=== PATIENT | female | born 1975 | race Caucasian/White ===

== ENCOUNTER 2022-06-17 20:43 | Emergency (ER) | payer MEDICAID, OTHER ==
[2022-06-17] MEDS ORDERED: KETOROLAC 30 MG/ML VIAL IM STA (21:21)
--- NOTE | 2022-06-17 21:24 | ED Physician Documentation ---
History of Present Illness - Stated complaint Stated Complaint: RT LEG SWOLLEN - Chief complaint Chief Complaint: Ext Problem - History obtained from History obtained from: Patient - Additonal information Additional information: 47-year-old woman with history of psoriasis with frequent plaque development on right lower extremity presents with swelling, redness, pain gradual in onset and developing progressively over the past 4 days. She has never had this happen before. Denies history of blood clots, recent bedrest, surgery, shortness of breath, cough or hemoptysis. Review of Systems Skin: reports: Lesions (psoriasis plaques) Musculoskeletal: reports: Extremity pain, Extremity swelling PD PAST MEDICAL HISTORY - Past Medical History Cardiovascular: None Respiratory: None Endocrine/Autoimmune: None GI: None [employer]: None : None HEENT: None Psych: None Musculoskeletal: None Derm: Eczema - Past Surgical History Past Surgical History: Yes /[employer]: section - Present Medications Home Medications: Ambulatory Orders Medication Instructions Recorded Confirmed cephALEXin [Keflex] 500 mg PO Q6H #28 tab 06/17/22 - Allergies Allergies/Adverse Reactions: Allergies Allergy/AdvReac Type Severity Reaction Status Date / Time hydromorphone HCl * Allergy Rash Verified 06/17/22 21:00 [From Dilaudid] - Social History Does the pt smoke?: No Smoking Status: Never smoker Does the pt drink ETOH?: No Does the pt have substance abuse?: No - Immunizations Immunizations are current?: Yes - POLST Patient has POLST: No PD ED PE NORMAL - Vitals Vital signs reviewed: Yes - General General: Alert and oriented X 3, No acute distress, Well developed/nourished - HEENT HEENT: Atraumatic, PERRL, EOMI - Derm Derm: Normal color, Warm and dry, Other (psoriasis plaques to LLE, particularly lateral leg. erythema and swelling of leg from ankle to knee. 2+ BL dp pulses. normal sensation and movement) Results - Vitals Vitals: Vital Signs - 24 hr 06/17/22 06/17/22 06/17/22 20:55 21:16 21:55 Temperature 36.1 C L Heart Rate 100 83 Respiratory 19 16 16 Rate Blood Pressure 140/88 H 122/82 H O2 Saturation 97 99 06/17/22 06/17/22 23:11 23:25 Temperature Heart Rate 72 Respiratory 16 17 Rate Blood Pressure 136/82 H O2 Saturation 100 Oxygen O2 Source Room air PD Medical Decision Making - ED course ED course: 47-year-old woman presents with swelling, erythema, and pain to left lower extremity with associated psoriasis plaques. Concerning is predominantly for cellulitis however we will obtain an ultrasound to evaluate for DVT as well. She has low risk therefore I suspect the study will be negative and we can treat with antibiotics for cellulitis. I will however advised her to have follow-up ultrasound done in 2 weeks to confirm no DVT. u/s Negative for DVT. Advised her to follow-up for biopsy of her lymph node. Return precautions given. Plan to follow-up with primary care provider for wound check this week. Departure - Departure Disposition: 01 Home, Self Care Clinical Impression: Pain in extremity, Cellulitis, Enlarged lymph node Condition: Good Instructions: Cellulitis Dc Prescriptions: cephALEXin [Keflex] 500 mg PO Q6H #28 tab Comments: You are seen in the emergency department for cellulitis of your left leg. A prescription for antibiotics was sent to [facility] [place] electronically. You also had an ultrasound done to check for blood clot. You should have a repeat ultrasound in 2 weeks. Please follow-up with your primary care provider to check your leg's healing and also to have your repeat ultrasound scheduled. Return to the emergency department if the redness is spreading or not improving after 48hours, for new or worsening symptoms or for any other concerns.
--- NOTE | 2022-06-17 23:05 | Ultrasound Report ---
PROCEDURE: Duplex Ext Veins Right INDICATIONS: RLE swelling, redness, pain TECHNIQUE: Real-time imaging, as well as color and pulse Doppler interrogation, were performed of the lower extr emity deep veins from the inguinal ligament to the popliteal fossa. COMPARISON: None. FINDINGS: The deep veins are normally compressible, and free of intraluminal thrombus. Color and pu lse Doppler demonstrate normal phasic intraluminal flow. There is normal augmentation response to di stal compression maneuver. Enlarged right groin lymph node with a short axis diameter measuring 1.3 cm. Calf edema. IMPRESSION: 1. No right lower extremity DVT. 2. Enlarged right groin lymph node. Recommend clinical correlation and follow-up. If the node persist s consider ultrasound-guided biopsy. Reviewed by: Tim Jeong MD on 06/17/2022 10:57 PM PDT Approved by: Tim Jeong MD on 06/17/2022 10:57 PM PDT Station ID: [id number]
[2022-06-18] MEDS ORDERED: cephALEXin 250 MG CAPSULE PO STA (01:02)
[2022-06-18 01:16] VITALS: BP 125/70
== END 2022-06-18 01:33 | disposition home or self-care (01) ==
LOC: ED 20:43
DX: L03.115 Cellulitis of right lower limb (principal); R59.9 Enlarged lymph nodes, unspecified
CPT/HCPCS: 93971; 96372; 99283; 99284; A9270